=== PATIENT | male | born 1965 | race Caucasian/White ===

== ENCOUNTER 2016-09-27 07:38 | Emergency (ER) | payer OTHER ==
[~2016-09-27] VITALS: Ht 177.8 cm; Wt 81.2 kg
[2016-09-27 08:16] VITALS: BP 153/69
[2016-09-27] MEDS ORDERED: IBUPROFEN 400 MG TABLET PO ONE (08:30)
== END 2016-09-27 09:32 | disposition home or self-care (01) ==
LOC: ER 07:45
DX: M94.0 Chondrocostal junction syndrome [Tietze] (principal)
CPT/HCPCS: 71100; 99284; A4606; Z7610

== ENCOUNTER 2016-10-13 16:29 | Emergency (ER) | payer OTHER ==
[~2016-10-13] VITALS: Ht 177.8 cm; Wt 81.2 kg
[2016-10-13 16:29] VITALS: BP 126/71
== END 2016-10-13 16:58 | disposition home or self-care (01) ==
LOC: ER 16:30
DX: B02.29 Other postherpetic nervous system involvement (principal)
CPT/HCPCS: A4606; Z7502; Z7610